=== PATIENT | male | born 1990 | race Caucasian/White ===

== ENCOUNTER 2017-09-20 22:30 | Emergency (ER) | payer SELFPAY ==
[~2017-09-20] VITALS: Ht 167.6 cm; Wt 72.6 kg
[2017-09-20 22:47] VITALS: BP 172/94
[2017-09-20] MEDS ORDERED: SULFAMETH/TRIMETH 800/160 MG 1 UDTAB TABLET PO ONE ×2 (23:00→23:48)
[2017-09-20] MEDS ORDERED: CEPHALEXIN MONOHYDRATE 500 MG CAPSULE PO ONE ×2 (23:00→23:48)
[2017-09-20] MEDS ORDERED: IBUPROFEN 400 MG TABLET PO ONE (23:00)
[2017-09-20] MEDS ORDERED: LIDOCAINE HCL/PF 1% 30 ML SDV ONE (23:36)
[2017-09-20] MEDS ORDERED: IBUPROFEN 400 MG TABLET ONE (23:48)
[2017-09-21] MEDS ORDERED: HYDROCODONE/APAP 5/325MG 1 EACH TABLET PO ONE
[2017-09-21] MEDS ORDERED: HYDROCODONE/APAP 5/325MG 1 EACH TABLET ONE (00:21)
== END 2017-09-21 00:33 | disposition home or self-care (01) ==
LOC: ER 22:30
DX: J34.0 Abscess, furuncle and carbuncle of nose (principal); F17.200 Nicotine dependence, unspecified, uncomplicated
CPT/HCPCS: 99284; A4606; J3490; Z7610